=== PATIENT | male | born 1995 | race African-American/Black ===

== ENCOUNTER 2020-01-12 18:02 | Emergency (ER) | payer MEDICAID ==
[~2020-01-12] VITALS: Ht 182.9 cm; Wt 79.0 kg
[2020-01-12] MEDS ORDERED: LIDOCAINE HCL 1% 20ML VIAL (Pyxis) INJ INFIL ONE (18:30)
[2020-01-12 19:15] LABS: CHLORIDE 109 mEq/L (98-107)
[2020-01-12 19:19] LABS: ETHANOL BLOOD < 10 mg/dL
[2020-01-12 19:22] LABS: BASOPHILS % 0.7 % (0.0-2.0); EOSINOPHILS % 5.3 % (0.0-5.0); HEMATOCRIT. 46.9 % (42.0-52.0); HEMOGLOBIN. 15.5 g/dL (14.0-18.0); LYMPHOCYTES % 33.5 % (20.0-50.0); MEAN CORPUSCULAR HEMOGLOBIN 28.3 pg (28.0-32.0); MEAN CORPUSCULAR VOLUME 85.7 fL (80.0-94.0); MEAN PLATELET VOLUME 10.7 fl (7.4-10.4); MONOCYTES % 11.4 % (2.0-8.0); NEUTROPHILS % 49.1 % (40.0-76.0); PLATELET 119 x1000/uL (130-400); RED BLOOD CELL COUNT 5.47 mill/uL (4.7-6.1); RED CELL DISTRIBUTION WIDTH 15.7 % (11.6-14.6)
[2020-01-12] MEDS ORDERED: HALOPERIDOL 5MG TABLET PO STA (21:03)
[2020-01-12] MEDS ORDERED: DIPHENHYDRAMINE 50MG CAPSULE PO STA (21:03)
[2020-01-12] MEDS ORDERED: LORAZEPAM 1MG TABLET PO STA (21:03)
[2020-01-13 05:02] LABS: *AMPHETAMINES SCREEN URINE PRESUMTIVE POSITIVE (NEGATIVE); *BARBITURATES SCREEN URINE NEGATIVE (NEGATIVE); *BENZODIAZEPINES SCREEN URINE NEGATIVE (NEGATIVE); *COCAINE SCREEN URINE NEGATIVE (NEGATIVE)
[2020-01-13 05:03] LABS: CANNABINOID URINE SCREEN PRESUMTIVE POSITIVE (NEGATIVE); METHADONE URINE SCREEN NEGATIVE (NEGATIVE); PHENCYCLIDINE URINE SCREEN NEGATIVE (NEGATIVE)
[2020-01-13 05:26] LABS: CLARITY URINE CLEAR (CLEAR); COLOR URINE YELLOW (YELLOW); KETONES URINE TRACE (NEGATIVE); NITRITE URINE NEGATIVE (NEGATIVE); OCCULT BLOOD URINE NEGATIVE (NEGATIVE); PH URINE 6.5 (4.5-8.0); PROTEIN URINE TRACE (NEGATIVE); SPECIFIC GRAVITY URINE 1.035 (1.005-1.030)
[2020-01-13 05:27] LABS: LEUKOCYTE ESTERASE URINE NEGATIVE (NEGATIVE)
[2020-01-13 15:15] VITALS: BP 99/72
[2020-01-14 20:29] LABS: OPIATES URINE SCREEN NEGATIVE (NEGATIVE)
== END 2020-01-13 17:48 | disposition home or self-care (01) ==
LOC: ER 18:02
DX: S11.91XD Laceration without foreign body of unspecified part of neck, subsequent encounter (principal); R45.851 Suicidal ideations; X58.XXXD Exposure to other specified factors, subsequent encounter; D69.6 Thrombocytopenia, unspecified; G40.909 Epilepsy, unspecified, not intractable, without status epilepticus
CPT/HCPCS: 12002; 36415; 80053; 80305; 80320; 81003; 85025; 99285; J1630; J3490; Q0163; G0480